=== PATIENT | female | born 1965 | race Caucasian/White ===

== ENCOUNTER 2018-03-12 12:53 | Emergency (ER) | payer OTHER ==
[~2018-03-12] VITALS: Ht 160 cm; Wt 63.5 kg
[~2018-03-12 12:53] MED LIST: AVAPRO150 MG
== END 2018-03-12 16:13 | disposition home or self-care (01) ==
LOC: ER 12:53
DX: K52.89 Other specified noninfective gastroenteritis and colitis (principal); R10.13 Epigastric pain

== ENCOUNTER 2019-07-26 17:01 | Inpatient (IN) | payer OTHER ==
[~2019-07-26] VITALS: Ht 160 cm; Wt 66.7 kg
[~2019-07-26 17:01] MED LIST changes: +CIPRO500 MG PO; +KETO10TA2 PO; +PNEU16DI2; +ZYRTEC10 M3
[2019-07-26] MEDS ORDERED: DIOVAN160 M1 (17:29)
[2019-07-28] MEDS ORDERED: AMOX1TAB5 PO (11:57)
[2019-07-28] MEDS ORDERED: PROTONIX40 MG PO (11:58)
[2019-07-28] MEDS ORDERED: ULTRACET PO (12:01)
== END 2019-07-28 13:36 | disposition home or self-care (01) | DRG 343 ==
LOC: ER 17:01 → SEC-K 20:45 → SURH 20:45 → O/R 07-27 00:27 → SURH 07-27 00:30
PROVIDERS: ADMIT Surgery
PROC: 0DNP0ZZ Release Rectum, Open Approach (ICD-10-PCS; 2019-07-26)
PROC: BW21ZZZ Computerized Tomography (CT Scan) of Abdomen and Pelvis (ICD-10-PCS; 2019-07-26)
PROC: 0DTJ0ZZ Resection of Appendix, Open Approach (ICD-10-PCS; principal; 2019-07-26 21:00)
DX: K35.890 Other acute appendicitis without perforation or gangrene (principal); K66.0 Peritoneal adhesions (postprocedural) (postinfection); I10 Essential (primary) hypertension; J31.0 Chronic rhinitis